=== PATIENT | female | born 1945 | race African-American/Black ===

== ENCOUNTER 2019-03-27 10:08 | Emergency (ER) | payer MEDICARE ==
[~2019-03-27] VITALS: Ht 162.6 cm; Wt 63.5 kg
[2019-03-27] MEDS ORDERED: MORPHINE SULFATE 2 MG/ML VIAL. IV ONE (11:15)
[2019-03-27] MEDS ORDERED: ONDANSETRON PF 4 MG/2 ML VIAL. IV ONE (11:15)
[2019-03-27] MEDS ORDERED: hydrALAZINE 20 MG/ML VIAL. IVP ONE (11:15)
--- NOTE | 2019-03-27 11:21 | PHYS DOC ---
Past Medical History Past Medical History: Hypertension Past Surgical History: Other Additional Past Surgical Histo: L CATARACT Alcohol Use: None Drug Use: None Adult General Chief Complaint Chief Complaint: DENTAL PROBLEM HPI HPI Patient is a 73 year old female that presents to the ER for left jaw pain. The patient states that she was started on the pain 2 weeks after cataract surgery which was on February 04. Denies fevers, states she's having left ear pain, left jaw pain states she's also been having some blurry vision. Her blood pressure on arrival was 254/36. States that she does not take blood pressure medicine at home she just follows the DASH diet. Rates her pain as 10 out of 10 in severity. Review of Systems Review of Systems Constitutional: Denies fever or chills [] Eyes: Report blurry vision. HENT: Report L ear pain, and L jaw pain. Respiratory: Denies cough or shortness of breath [] Cardiovascular: No additional information not addressed in HPI [] GI: Denies abdominal pain, nausea, vomiting, bloody stools or diarrhea [] : Denies dysuria or hematuria [] Musculoskeletal: Denies back pain or joint pain [] Integument: Denies rash or skin lesions [] Neurologic: Denies headache, focal weakness or sensory changes [] Endocrine: Denies polyuria or polydipsia [] Complete systems were reviewed and found to be within normal limits, except as documented in this note. Current Medications Current Medications Current Medications Medications (Trade) Dose Ordered Sig/Rudy Start Time Stop Time Status Last Admin Dose Admin Hydralazine HCl (Apresoline Inj) 10 mg 1X ONCE 03/27/19 11:15 03/27/19 11:16 DC 03/27/19 11:56 10 MG Iohexol (Omnipaque 300 Mg/ml) 60 ml 1X ONCE 03/27/19 12:15 03/27/19 12:16 DC 03/27/19 12:31 60 ML Morphine Sulfate (Morphine Sulfate) 2 mg 1X ONCE 03/27/19 11:15 03/27/19 11:16 DC 03/27/19 11:56 2 MG Ondansetron HCl (Zofran) 4 mg 1X ONCE 03/27/19 11:15 03/27/19 11:16 DC 03/27/19 11:56 4 MG Sodium Chloride 1,000 ml @ 1,000 mls/hr 1X ONCE 03/27/19 12:15 03/27/19 13:14 03/27/19 12:36 1,000 MLS/HR Allergies Allergies Allergies Coded Allergies Type Severity Reaction Last Updated Verified No Known Drug Allergies 03/27/19 No Physical Exam Physical Exam Constitutional: Well developed, well nourished, no acute distress, non-toxic appearance. [] HENT: Normocephalic, atraumatic, bilateral external ears normal, oropharynx moist, no oral exudates, nose normal. L jaw has erythema to behind the left ear and is tender on palpation. Eyes: PERRLA, EOMI, conjunctiva normal, no discharge. [] Neck: Normal range of motion, no tenderness, supple, no stridor. [] Cardiovascular:Heart rate regular rhythm, no murmur [] Lungs & Thorax: Bilateral breath sounds clear to auscultation [] Abdomen: Bowel sounds normal, soft, no tenderness, no masses, no pulsatile masses. [] Skin: Warm, dry, no erythema, no rash. [] Back: No tenderness, no CVA tenderness. [] Extremities: No tenderness, no cyanosis, no clubbing, ROM intact, no edema. [] Neurologic: Alert and oriented X 3, normal motor function, normal sensory function, no focal deficits noted. [] Psychologic: Affect normal, judgement normal, mood normal. [] Current Patient Data Vital Signs Vital Signs Date Time Temp Pulse Resp B/P (MAP) Pulse Ox O2 Delivery O2 Flow Rate FiO2 03/27/19 12:37 16 98 Room Air 03/27/19 12:02 70 190/95 (126) 03/27/19 10:24 98.4 98.4 Lab Values Laboratory Tests Test 03/27/19 11:45 White Blood Count 4.1 x10^3/uL (4.0-11.0) Red Blood Count 5.23 x10^6/uL (3.50-5.40) Hemoglobin 12.9 g/dL (12.0-15.5) Hematocrit 40.4 % (36.0-47.0) Mean Corpuscular Volume 77 fL (79-100) L Mean Corpuscular Hemoglobin 25 pg (25-35) Mean Corpuscular Hemoglobin Concent 32 g/dL (31-37) Red Cell Distribution Width 14.1 % (11.5-14.5) Platelet Count 202 x10^3/uL (140-400) Neutrophils (%) (Auto) 64 % (31-73) Lymphocytes (%) (Auto) 25 % (24-48) Monocytes (%) (Auto) 8 % (0-9) Eosinophils (%) (Auto) 1 % (0-3) Basophils (%) (Auto) 1 % (0-3) Neutrophils # (Auto) 2.6 x10^3/uL (1.8-7.7) Lymphocytes # (Auto) 1.0 x10^3/uL (1.0-4.8) Monocytes # (Auto) 0.3 x10^3/uL (0.0-1.1) Eosinophils # (Auto) 0.0 x10^3/uL (0.0-0.7) Basophils # (Auto) 0.1 x10^3/uL (0.0-0.2) Sodium Level 141 mmol/L (136-145) Potassium Level 4.1 mmol/L (3.5-5.1) Chloride Level 105 mmol/L (98-107) Carbon Dioxide Level 24 mmol/L (21-32) Anion Gap 12 (6-14) Blood Urea Nitrogen 20 mg/dL (7-20) Creatinine 1.4 mg/dL (0.6-1.0) H Estimated GFR (Cockcroft-Gault) 44.6 BUN/Creatinine Ratio 14 (6-20) Glucose Level 104 mg/dL (70-99) H Calcium Level 9.3 mg/dL (8.5-10.1) Total Bilirubin 0.8 mg/dL (0.2-1.0) Aspartate Amino Transferase (AST) 15 U/L (15-37) Alanine Aminotransferase (ALT) 14 U/L (14-59) Alkaline Phosphatase 80 U/L (46-116) Total Protein 8.0 g/dL (6.4-8.2) Albumin 4.0 g/dL (3.4-5.0) Albumin/Globulin Ratio 1.0 (1.0-1.7) Laboratory Tests 03/27/19 11:45 Laboratory Tests 03/27/19 11:45 EKG EKG [] Radiology/Procedures Radiology/Procedures [facility] [address] [place] [address] IMAGING REPORT Signed PATIENT: CARLOS WHELAN ACCOUNT: [id number] : 1945 LOCATION: ER AGE: 73 SEX: F EXAM STATUS: REG ER ORD. PHYSICIAN: RICHIE MARTINEZ APRN REASON: left jaw pain, concern for mastoditis PROCEDURE: CT MAXILLOFACIAL W/CONTRAST Examination: CT MAXILLOFACIAL W/CONTRAST History: Left jaw pain. Mastoiditis is questioned. Comparison/Correlation: None Findings: Axial images of maxillofacial structures were obtained following IV contrast. Sagittal and coronal reformatted images were provided. Minimal opacification of the right mastoid air cells noted. Parotid glands are unremarkable. Submandibular glands are normal. Mild left mandibular condylar remodeling with subchondral degenerative change is present. Mild spurring and remodeling of the right mandibular condyle noted. No displaced fracture or bony destructive finding. Visualized pharynx is symmetric. No enlarged cervical lymph nodes. Few nonenlarged lymph nodes about the level 2A region bilaterally are present. True and false cords are symmetric. Reversal cervical lordosis is notable. Severe C5-6 disc space narrowing is present. Moderate C6/7 disc space narrowing. 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 Minimal opacification of the right mastoid air cells. No fluid levels involving mastoid air cells to suggest acute mastoiditis. Electronically signed by: Josef Cano MD (03/27/2019 12:47 PM) [facility] DICTATED and SIGNED BY: JOSEF CANO MD DATE: 03/27/19 1247 [][facility] [address] [place] [address] IMAGING REPORT Signed PATIENT: CARLOS WHELAN ACCOUNT: [id number] : 1945 LOCATION: ER AGE: 73 SEX: F EXAM STATUS: REG ER ORD. PHYSICIAN: RICHIE MARTINEZ APRN REASON: blurry vision PROCEDURE: CT HEAD WO CONTRAST Examination: CT HEAD WO CONTRAST History: Blurry vision Comparison/Correlation: None Findings: Axial images of routine without contrast. Chronic degenerative change of the white matter is present. Small left internal capsule anterior limb lacunar infarct is suggested. No midline shift or mass effect. Bony structures are grossly unremarkable. Globes and optic nerves are unremarkable. Impression: No intracranial hemorrhage. PQRS Compliance Statement: One or more of the following individualized dose reduction techniques were utilized for this examination: 1. Automated exposure control 2. Adjustment of the mA and/or kV according to patient size 3. Use of iterative reconstruction technique Electronically signed by: Josef Cano MD (03/27/2019 12:37 PM) [facility] DICTATED and SIGNED BY: JOSEF CANO MD DATE: 03/27/19 1234 Course & Med Decision Making Course & Med Decision Making Pertinent Labs and Imaging studies reviewed. (See chart for details) Concern for Mastoiditis will get CT of Maxillofacial, is having blurry vision w ill get Head CT. Patient blood pressure is 254/136 with blurry vision. Will give Hydralazine. Offered and strongly encouraged admission into the hospital and patient said that she would not be admitted. Will have follow up with primary care doctor regarding blood pressure. Will place on Keflex as her cheek is red and could have some cellulitis going on. Imaging is negative. Patient creatinine is also elevated at 1.4. Discussed with patient and once again recommended admission. Patient declined. Discussed the risk including or stroke from her blood pressure/infection. Also discussed the risk of leaving with LETY. Dragon Disclaimer Dragon Disclaimer This electronic medical record was generated, in whole or in part, using a voice recognition dictation system. Departure Departure Impression: Primary Impression: Mandible pain Additional Impressions: Hypertensive urgency LETY (acute kidney injury) Cellulitis Disposition: 07 AGAINST MEDICAL ADVICE Condition: GUARDED Referrals: NO PCP (PCP) Patient Instructions: Acute Kidney Injury, Cellulitis, Hypertension Additional Instructions: Thank you for visiting [facility]. We appreciate you trusting us with your care. If any additional problems come up don't hesitate to return to visit us. Please follow up with your primary care provider so they can plan additional care if needed and know about the problem that you had. If symptoms worsen come back to the Emergency Department. Any concerning symptoms that start such as chest pain, shortness of air, weakness or numbness on one side of the body, running high fevers or any other concerning symptoms return to the ER. Please follow up with your primary care doctor about elevated creatinine, jaw pain, and hypertension. Scripts Lisinopril (LISINOPRIL) 20 Mg Tablet 1 TAB PO DAILY for 30 Days, #30 TAB 0 Refills Prov: RICHIE MARTINEZ APRN 03/27/19 Cephalexin (KEFLEX) 500 Mg Capsule 1 CAP PO BID for 7 Days, #14 CAP Prov: RICHIE MARTINEZ APRN 03/27/19 Problem Qualifiers Additional Impressions: Cellulitis Site of cellulitis: face Qualified Codes: L03.211 - Cellulitis of face RICHEI MARTINEZ APRN Mar 27, 2019 11:21
[2019-03-27 11:55] LABS: BASO # 0.1 x10^3/uL (0.0-0.2); BASO % 1 % (0-3); EOS % 1 % (0-3); HEMATOCRIT 40.4 % (36.0-47.0); HEMOGLOBIN 12.9 g/dL (12.0-15.5); LYMPH % 25 % (24-48); MEAN CORPUSCULAR HEMOGLOBIN 25 pg (25-35); MEAN CORPUSCULAR HGB CONC 32 g/dL (31-37); MEAN CORPUSCULAR VOLUME 77 fL (79-100); MONO # 0.3 x10^3/uL (0.0-1.1); MONO % 8 % (0-9); NEUT # 2.6 x10^3/uL (1.8-7.7); NEUT % 64 % (31-73); PLATELET COUNT 202 x10^3/uL (140-400); RED BLOOD COUNT 5.23 x10^6/uL (3.50-5.40); RED CELL DISTRIBUTION WIDTH 14.1 % (11.5-14.5); WHITE BLOOD COUNT 4.1 x10^3/uL (4.0-11.0)
[2019-03-27 12:08] LABS: CALCIUM 9.3 mg/dL (8.5-10.1); CREATININE 1.4 mg/dL (0.6-1.0); GFR 44.6; POTASSIUM 4.1 mmol/L (3.5-5.1)
[2019-03-27 12:14] LABS: TOTAL BILIRUBIN 0.8 mg/dL (0.2-1.0)
[2019-03-27] MEDS ORDERED: IV NORMAL SALINE 1000ML BAG 1,000 ML IV ONE (12:15)
[2019-03-27] MEDS ORDERED: IOHEXOL 300 MG/ML 100ML VIAL. IV ONE (12:15)
--- NOTE | 2019-03-27 12:40 | RAD ---
Examination: CT HEAD WO CONTRAST History: Blurry vision Comparison/Correlation: None Findings: Axial images of routine without contrast. Chronic degenerative change of the white matter is present. Small left internal capsule anterior limb lacunar infarct is suggested. No midline shift or mass effect. Bony structures are grossly unremarkable. Globes and optic nerves are unremarkable. Impression: No intracranial hemorrhage. PQRS Compliance Statement: One or more of the following individualized dose reduction techniques were utilized for this examination: 1. Automated exposure control 2. Adjustment of the mA and/or kV according to patient size 3. Use of iterative reconstruction technique Electronically signed by: Josef Atkins MD (03/27/2019 12:37 PM) [facility]
--- NOTE | 2019-03-27 12:50 | RAD ---
Examination: CT MAXILLOFACIAL W/CONTRAST History: Left jaw pain. Mastoiditis is questioned. Comparison/Correlation: None Findings: Axial images of maxillofacial structures were obtained following IV contrast. Sagittal and coronal reformatted images were provided. Minimal opacification of the right mastoid air cells noted. Parotid glands are unremarkable. Submandibular glands are normal. Mild left mandibular condylar remodeling with subchondral degenerative change is present. Mild spurring and remodeling of the right mandibular condyle noted. No displaced fracture or bony destructive finding. Visualized pharynx is symmetric. No enlarged cervical lymph nodes. Few nonenlarged lymph nodes about the level 2A region bilaterally are present. True and false cords are symmetric. Reversal cervical lordosis is notable. Severe C5-6 disc space narrowing is present. Moderate C6/7 disc space narrowing. 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 Minimal opacification of the right mastoid air cells. No fluid levels involving mastoid air cells to suggest acute mastoiditis. Electronically signed by: Josef Atkins MD (03/27/2019 12:47 PM) [facility]
[2019-03-27] MEDS ORDERED: LISI-334 PO (13:03)
[2019-03-27] MEDS ORDERED: CEPH-264 PO (13:03)
[2019-03-27 13:53] VITALS: BP 217/102
== END 2019-03-27 13:59 | disposition left against medical advice (07) ==
LOC: ER 10:08
DX: L03.211 Cellulitis of face (principal); N17.9 Acute kidney failure, unspecified; I16.0 Hypertensive urgency; R68.84 Jaw pain; R51 Headache; I10 Essential (primary) hypertension
CPT/HCPCS: 36415; 70450; 70487; 80053; 85025; 96374; 96375; 99285; J0360; J2270; J2405; J7030; Q9967